=== PATIENT | male | born 1980 | race Caucasian/White ===

== ENCOUNTER → 2018-01-10 | Outpatient (CLI) | payer OTHER | LOC: MHCPAIN 14:25 | DX: G89.29 Other chronic pain (principal); M47.812 Spondylosis without myelopathy or radiculopathy, cervical region; R51 Headache; M54.81 Occipital neuralgia | CPT/HCPCS: G0463 ==

== ENCOUNTER → 2018-01-12 | Outpatient (CLI) | payer OTHER | LOC: MHCPAIN 08:31 | DX: M54.12 Radiculopathy, cervical region (principal); M50.90 Cervical disc disorder, unspecified, unspecified cervical region; R51 Headache ==

== ENCOUNTER → 2018-01-18 | Outpatient (CLI) | payer OTHER | LOC: MHCPAIN 08:04 | DX: G89.29 Other chronic pain (principal); M50.90 Cervical disc disorder, unspecified, unspecified cervical region; M54.81 Occipital neuralgia; R51 Headache | CPT/HCPCS: G0463 ==

== ENCOUNTER → 2019-02-09 | Outpatient (CLI) | payer OTHER | LOC: COL.RAD 06:59 | DX: E80.6 Other disorders of bilirubin metabolism (principal) | CPT/HCPCS: A9537; J2805 ==